=== PATIENT | female | born 1985 | race Caucasian/White ===

== ENCOUNTER 2017-09-24 05:42 | Inpatient (IN) | payer OTHER ==
--- OUTSIDE RECORDS SUMMARY | 2017-09-24 05:44 | XMS REPORT ---
:1985 Author Organization [employer] Care Team Providers Name Role Phone Alexander Ni Provider Role Unavailable Allergies No Known Allergies Problems Problem Type Condition Code Onset Dates Condition Status Problem Encounter for supervision of other Z34.82 Active normal in second trimester Assessment Encounter for supervision of other Z34.83 Active normal , third trimester Problem Encounter for supervision of other Z34.83 Active normal , third trimester Medications No Known Medications Results No Known Results Summary Purpose [employer] Submission
--- OUTSIDE RECORDS SUMMARY | 2017-09-24 05:44 | XMS REPORT ---
[...] Medications Results No Known Results Summary Purpose [employer] Submission
--- OUTSIDE RECORDS SUMMARY | 2017-09-24 05:44 | XMS REPORT ---
[...] Medications Results No Known Results Summary Purpose [employer] Submission
--- OUTSIDE RECORDS SUMMARY | 2017-09-24 05:44 | XMS REPORT ---
[...] No Known Medications Results No Known Results Immunizations Vaccine Administration Date TDAP > 7 Years-Adacel August 23, 2017 Summary Purpose [employer] Submission
--- OUTSIDE RECORDS SUMMARY | 2017-09-24 05:44 | XMS REPORT ---
[...] Medications Results No Known Results Summary Purpose [facility] Submission
[2017-09-24] MEDS ORDERED: OXYTOCIN/LR 20 UNIT/1,000 ML BAG IV SCH ×2 (06:00→07:00)
[2017-09-24] MEDS ORDERED: Ringers Lactate 1,000 ML IV SCH (06:00)
[2017-09-24] MEDS ORDERED: Ringers Lactate 1,000 ML IV PRN (06:00)
[2017-09-24] MEDS ORDERED: LIDOCAINE 1% 20 ML MDV ONE (06:12)
[2017-09-24] MEDS ORDERED: OXYTOCIN/LR 20 UNIT/1,000 ML BAG IV ONE (06:13)
[2017-09-24] MEDS ORDERED: CARBOPROST TROME 250 MCG/ML IM ONE (06:13)
[2017-09-24] MEDS ORDERED: METHYLERGONOVINE 0.2MG/ML AMP IM ONE (06:13)
[2017-09-24] MEDS ORDERED: IBUPROFEN 200 MG TAB PO PRN (06:37)
[2017-09-24] MEDS ORDERED: Oxycodone HCl/Acetaminophen 1 TAB TAB PO PRN (06:37)
[2017-09-24] MEDS ORDERED: METHYLERGONOVINE 0.2MG/ML AMP IM PRN (06:37)
[2017-09-24] MEDS ORDERED: CARBOPROST TROME 250 MCG/ML IM PRN (06:37)
[2017-09-24] MEDS ORDERED: METHYLERGONOVINE 0.2 MG TAB PO PRN (06:37)
[2017-09-24] MEDS ORDERED: ONDANSETRON 4 MG (ODT) TAB PO PRN (06:37)
[2017-09-24 06:40] LABS: RPR Titer ND
--- NOTE | 2017-09-24 06:40 | P.BOP ---
Preoperative diagnosis: 40wk pregnancay, labor Postoperative diagnosis: same, delivery viable male infant, CANX2 Primary procedure: SCVD Secondary procedure: repair of midline 2nd degree laceration Other procedure(s): local for repair Estimated blood loss: Less than 200ml Anesthesia: Local Complications: None Transferred to: Other (272) Condition: Good
[2017-09-24 06:42] LABS: Urine Appearance CLEAR; Urine Bilirubin NEGATIVE (NEG); Urine Blood TRACE (NEG); Urine Color YELLOW; Urine Glucose NEGATIVE (NEG); Urine Protein NEGATIVE (NEG); Urine Urobilinogen 0.2 mg/dL (0.2-1.0); Urine pH 7.5 (5.0-7.0)
[2017-09-24 06:45] LABS: Absolute Lymphocytes (CBC) 1.5 K/uL (0.7-4.9); Absolute Monocytes 0.7 K/uL (0.1-1.3); Absolute Neutrophil 7.8 K/uL (1.8-8.0); Basophils % 0.4 % (0-1.3); Eosinophils % 0.4 % (0-4.4); Hematocrit 40.2 % (36.0-45.0); Lymphocytes % 14.9 % (15.3-44.8); MCH 29.9 pg (27.0-35.0); MCV 89.5 fL (80-100); MPV 9.4 fL (7.6-11.3); Monocytes % 6.7 % (3.3-12.3); RBC Red Blood Cell Count 4.49 M/uL (3.86-4.86)
[2017-09-24 07:03] LABS: Urine Microscopic Reflex ORDER UMIC
[2017-09-24 07:14] LABS: Urine Bacteria <20 /HPF (<20); Urine Culture Reflex Order REFLEXED; Urine RBC <5 /HPF (NONE SEEN)
[2017-09-24 07:34] VITALS: BMI 33.6
--- NOTE | 2017-09-24 10:32 | PREOPHP ---
Date of Admission: 09/24/2017 History Of Present Illness: Ms. Muse is a 32-year-old female, 6, para 3- 0-2-1 at 40 weeks gestation, admitted in active rapidly advancing labor. She noticed onset contracti ons at midnight tonight. On presentation, she was noted to be 8 cm dilated. Past Medical History: Please see record. Family History: Please see record. Review of Systems: She reports no recent cough, cold, fever, or chills. No recent nausea or vomiting. She denies any b reast lumps. has been active. She denies rupture of membranes, significant vaginal bleeding. She has had a tendency toward loose bowel movements recently. Physical Examination: General: Reveals female, in mild discomfort. Neck: Supple without adenopathy or thyromegaly. Lungs: Clear. Cardiac: Regular rate and rhythm without murmurs. Breasts: Not examined. Abdomen: Estimated weight of 7+ pounds. Pelvic: Cervix now 9+ cm dilated, vertex presentation, and intact membranes. Rupture of membranes p erformed. Clear fluid was noted. scalp electrode was placed. Extremities: Trace lower extremity edema. Impression: Term , active rapidly advancing labor. Plan: Preparations for delivery will be made. KAMRAN/KEYSHAWN Voice ID: [id number]
--- NOTE | 2017-09-24 13:29 | OP ---
Surgeon: Raj Vieira MD Delivery Note: Ms. Muse is a 32-year-old female, 6 , para 3-0-2-3 at approximately 40 weeks gestation, followed by Dr. Ni during this without significant problems. She was admitted in active labor and noted to be 8+ cm dilated. She had her first stage of labor of approximately 5 hours, second stage of labor of 10 minutes. She delivered by spontaneous controlled vaginal delivery a 7 pound 2 ounce male . was delivered vertex OA. The cord was clamped, cut, and after delayed cord clamping, it was cut and the infant placed on mother's abdomen. Cord around the neck x2 was noted at the time of delivery. Cord blood was obtained. The placenta was spontaneously expelled and appeared to be intact. Intrauterine exam revealed no retained placental fragments. She suffered a second-degree midline perineal laceration at the time of delivery. This was repaired in the usual fashion with local infiltration anesthesia and with 1% Xylocaine and 3-0 Vicryl suture. Estimated total blood loss was less than 200 cc. KAMRAN/KEYSHAWN Voice ID: [id number] Report ID: [id number] [place]
[2017-09-24 22:19] LABS: RPR (Rapid Plasma Reagin) NON-REACT (NON-REACT)
[2017-09-25 08:24] VITALS: BP 126/76; TEMP 97.6
[2017-09-27 04:39] LABS: HBsAG Nonreactive (Nonreactive)
== END 2017-09-25 11:40 | disposition home or self-care (01) | DRG 775 ==
LOC: 2ND-WC 05:42
PROVIDERS: ADMIT Specialist; ATTEND Student in an Organized Health Care Education/Training Program
PROC: 10E0XZZ Delivery of Products of Conception, External Approach (ICD-10-PCS; principal; 2017-09-24)
PROC: 0KQM0ZZ Repair Perineum Muscle, Open Approach (ICD-10-PCS; 2017-09-24)
DX: O69.81X0 Labor and delivery complicated by cord around neck, without compression, not applicable or unspecified (principal); O70.1 Second degree perineal laceration during delivery; Z3A.40 40 weeks gestation of pregnancy; Z37.0 Single live birth
CPT/HCPCS: 36415; 81003; 81015; 85014; 85025; 86592; 86901; 87086; 87088; 87340; J2210; J2590